=== PATIENT | female | born 1965 | race Caucasian/White ===

== ENCOUNTER 2017-08-11 14:16 | Inpatient (IN) | payer MEDICARE, MEDICAID ==
[2017-08-11] MEDS ORDERED: oxyCODONE 5 MG TAB PO PRN (17:29)
[2017-08-11] MEDS ORDERED: Ventolin HFA Inhaler 60 PUFF INHALER INH PRN (17:29)
[2017-08-11] MEDS ORDERED: Ondansetron ODT 4 MG TAB PO PRN (17:29)
[2017-08-11] MEDS: lamoTRIgine 25 MG TAB PO SCH (20:32)
[2017-08-11] MEDS: Gabapentin 400 MG CAP PO SCH (20:32)
[2017-08-11] MEDS: TROSPIUM 20 MG TABLET PO SCH (20:32)
[2017-08-11] MEDS: Senokot S 8.6-50 MG TAB PO SCH (20:33)
[2017-08-11] MEDS ORDERED: FLU VACC QS2017-18 36 mo. & older 0.5 ML SYRINGE IM ONE (21:00)
[2017-08-12] MEDS: NALOXEGOL OXALATE 12.5 MG PO SCH (08:39)
[2017-08-12] MEDS: Ferrous Sulfate 325 MG TAB PO SCH (08:41)
[2017-08-12] MEDS: lamoTRIgine 25 MG TAB PO SCH ×2 (08:41→20:28)
[2017-08-12] MEDS: Gabapentin 400 MG CAP PO SCH ×2 (08:41→20:28)
[2017-08-12] MEDS: Zinc Sulfate 220 MG CAP PO SCH (08:42)
[2017-08-12] MEDS: TROSPIUM 20 MG TABLET PO SCH ×2 (08:42→20:28)
[2017-08-12] MEDS: Multivitamin W/ Minerals 1 TAB PO SCH (08:42)
[2017-08-12] MEDS: Folic Acid 1 MG TAB PO SCH (08:43)
[2017-08-12] MEDS: Collagenase 250 UNITS/GM Ointment 30 GM TUBE TOP SCH (08:45)
[2017-08-12] MEDS: Senokot S 8.6-50 MG TAB PO SCH ×2 (08:46→20:28)
[2017-08-12] MEDS ORDERED: FLU VACC QS2017-18 36 mo. & older 0.5 ML SYRINGE IM ONE (09:00)
--- NOTE | 2017-08-13 00:06 | HP ---
DATE OF ADMISSION: 08/11/2017 PRIMARY CARE PHYSICIAN: Dr. Argueta in [place]. ADMITTING PHYSICIAN: Brittaney Winchester M.D. ATTENDING PHYSICIAN: Helena Hart MD REASON FOR ADMISSION: Admitted for a skilled rehabilitation to Dr Cordoba , secondary to deconditioning. DISCHARGE PLAN: Home with significant other. DISCHARGE GOAL: Independent to minimum assist with ADLs. ESTIMATED LENGTH OF STAY: Three to four weeks. HOSPITALIZATION: 07/10/17 to 08/11/17 at [facility].DIAGNOSES: Severe sepsis, Urinary tract infection, recurrent.Urethrocutaneous fistula, ileus, severe protein calorie malnutrition, small bowel obstruction partial, improved. Anemia, chronic. Bilateral ureteral stricture with obstruction, Cutaneous fistula and hip wound,Tachycardia sinus, baseline heart rate from 120s to 140s. , with unremarkable cardio eval;Severe deconditioning; Peripheral vascular disease, unspecified; muscular deconditioning; history of cervical cancer. PROCEDURES: 1. TPN 08/06/[address] Palacios and Dr[address] Ruma Vega. 2. On 07/13/2017, cystourethroscopy with bilateral stent exchange, bilateral renal aspiration and retrograde pyelography, ureteral dilatation by Dr. Lucio. 3. Retrograde pyelogram on 07/23/2017. 4. Lumbar puncture fluoroscopy on 07/18/2017. PHYSICIANS INVOLVED: 1. Hospitalist, [place] [facility] residents. 2. Dr. Ballard, Cardiology. 3. Dr. Hurst, Pulmonary. 4. Dr. Lucio, Urology. HISTORY OF PRESENT ILLNESS: The patient is a 52-year-old female with a past medical history of cervical and uterine cancer in 2006, status post radiation. Due to radiation complication, the patient reports to have left AKA. The patient was recently admitted at [facility] in [place] fro acute illness. She was transferred to [facility] for skilled rehab. The patient was referred and accepted by Dr Malik. Adalid in [facility] [place]. I am admitting the patient today for Dr Malki Chcbertram. The patient is a poor historian. Most of the information in the history was taken from the hospital records. There was no discharge summary available at this time and patient stayed at [facility] for a month. From what I gathered, the patient was admitted to [facility] for sepsis secondary to left above knee amputation stump infection associated with dehydration and electrolyte imbalance secondary to chronic volume depletion and poor oral intake. Patient reports history of chronic loss of appetite associated with significant weight loss. The patient was also found to have UTI on this admission. The patient's course was complicated with small bowel obstruction, AKA stump complication, urethrocutaneous fistula, severe protein calorie malnutrition and severe deconditioning. During her hospital stay, there was also reported persistent tachycardia. Her heart rate consistently runs in the 120s to 140s per record, thus Cardiology consult was obtained with no significant cardio findings as per records that I could gather. The patient was placed on TPN for feeding. during this hospitalization. Electrolytes were corrected. The patient was eventually has gotten off the TPN feeding and is now currently tolerating oral intake with regular diet. With regards to her left urethrocutaneous fistula per Dr. Lucio's note, it appears healed after one week of blunted trauma suction. She was dilated at that time for her cystoscopy by Dr. Lucio; however, longer term would debilitate the patient. The patient was eventually taken off of the Neville catheter and currently voiding prior to discharge. Patient's current wound on her AKA needs a wound vac. When seen today, the patient was resting comfortably in bed, significant other was at bedside at the time of examination. The patient reports she is generally weak and remains bedridden, hopeful that she could get back her baseline, so she can get back to her home environment. PAST MEDICAL HISTORY: 1. Ureter structures, status post stent placement versus change every year by Dr. Lucio, which has cause chronic kidney disease. 2. Hypertension. 3. Status post cervical and uterine cancer. 4. History of deep venous thrombosis. 5. Chronic back pain. 6. 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 7. Bipolar disorder. 8. Dyslipidemia. 9. Severe chronic complications from treatment of the vulvar cancer. 10. Vulvar cancer, status post resection and radiation, in remission. 11. Peripheral vascular disease with loss of left lower extremity and hip disarticulation. 12. Osteomyelitis of the pelvis, in remission. 13. Obstructed uropathy requiring bilateral nephrostomy tube placement with yearly replacement. 14. Ureteral strictures, now diagnosed with urethrocutaneous fistula. PAST SURGICAL HISTORY: Left [id number] amputation, colostomy and colostomy reversal, partial colectomy, stent placement in kidneys, cholecystectomy, left vein repair, and bladder removal. ALLERGIES: CIPRO. CURRENT MEDICATIONS: 1. Fentanyl 150 mg transdermal every 3 days. 2. Ventolin HFA inhaler 1 puff q.4 hours p.r.n. 3. VESIcare 5 mg p.o. q.a.m. 4. Protonix 40 mg p.o. q.a.m. 5. Oxycodone 7.4 mg q.4 hours p.r.n. 6. Zofran ODT 4 mg q.6 hours p.r.n. 7. Gabapentin 400 mg p.o. b.i.d. 8. Aspirin 81 mg p.o. daily. 9. Lamotrigine 150 mg p.o. b.i.d. 10. Folic acid 1 mg daily. 11. Ferrous sulfate 325 mg q.a.m. 12. Multivitamins 1 tablet daily. 13. Naloxegol oxalate 12 mg p.o. daily. 14. Santyl 250 units per gram ointment daily. 15. Senokot 1 tablet p.o. b.i.d. 16. Trospium 20 mg p.o. b.i.d. 17. Zinc sulfate 220 mg p.o. daily. FAMILY HISTORY: Noncontributory. SOCIAL HISTORY: Reports tobacco use, smokes half a pack a day for the last 35 years. Alcohol: Previous heavy alcohol consumption, but reports no alcohol consumption for years. Does report regular cannabis use, last use 2 weeks prior to recent hospitalization per report. REVIEW OF SYSTEMS: General: Reports general weakness, fatigue. No fever, no chills. Positive loss of appetite and weight loss. HEENT: No acute visual changes or hearing changes. No cold symptoms. Respiratory: Intermittent shortness of breath, no sputum production. No bloody sputum. No chronic cough. Gastrointestinal: Reports nausea without vomiting, indigestion, constipation. No loose bowel movements. No incontinence. No abdominal pain. Genitourinary: As per HPI. Currently, voiding, no dysuria, hematuria, no incontinence. Cardiovascular: Reports tachycardia, no palpitations, no paroxysmal nocturnal dyspnea, no active chest pain. No leg edema. Musculoskeletal: Reports chronic pain, no joint swelling, no redness, no stiffness, positive myalgia. Psychiatric: Denies depressive symptoms, anxiety , hallucinations, or insomnia. Neurologic: No focal numbness, focal weakness, syncope, tics, seizures or tremors. Skin: Reports postop wounds from recent procedures. PHYSICAL EXAMINATION: VITAL SIGNS: Temperature 99.5; pulse 120 initially, 113 on repeat; respirations 20, O2 sat 100% on room air; weight 75 pounds and 8 ounces; height 5 feet 6 inches; blood pressure 118/86. GENERAL: The patient is awake, alert, oriented x3, cachectic looking, generally weak female, comfortably resting in bed, not in acute distress. HEENT: Normocephalic, atraumatic. PERRLA, intact EOM. Anicteric sclerae. Oral mucosa is moist. No oral lesions. NECK: Supple. No LAD, no JVD, no bruit. CHEST: Normal excursion, clear to auscultation bilaterally. HEART: Tachycardic. Normal S1 and S2. No murmurs. ABDOMEN: Flat, soft, normoactive bowel sounds, nondistended, nontender. No rebound, no guarding. Negative CVA tenderness bilaterally. EXTREMITIES: Thin limbs, atrophied. Positive left AKA. Negative Homans' signs. Dorsalis pedis not appreciated on the right lower extremity. No edema, no cyanosis. SKIN: 3 unstageable sacral decubitus (1) 7.6 x 3.2 x 0.2 cm; (2) 1.1 x 0.8 x 0.1 cm , macerated, periwound with slough and necrotic tissue. Left AKA dehisced incision , 5.7 x 5.8 x 3.8 cm, visible bone, with tunneling between 11 to 2 o'clock, 4 cm depth; with 95% granulation and 5% slough. Post- procedure wound on the right neck and the left hip are covered by clean dressings.Multiple dry small scabbed wounds on the right toe,. Suspected DTI on the right great toe. PSYCHIATRIC: Calm, appropriate, pleasant and cooperative. LABORATORY DATA: Recent labs prior to transfer: Hemoglobin 9.8, hematocrit 30.4, WBC 5.2, platelets 309. Sodium 141, potassium 5.1, BUN 15, creatinine 0.66, glucose 96. ASSESSMENT AND PLAN: 1. Severe deconditioning. 2. General weakness secondary to complicated recent hospitalizations. 3. Sepsis secondary to left rhhal-cuw-ehps amputation stump treated, continue wound care. 4. Urethrocutaneous fistula complicated with urinary retention, requiring Neville catheter insertion status post removal of catheter, now voiding freely. 5. Peripheral vascular disease, unspecified chronic. 6. Protein calorie malnutrition, severe, status post TPN feeding, currently taking p.o. without problems. 7. History of small-bowel obstruction, resolved, currently having bowel movement, latest bowel movement this morning per the patient. 8. Anemia, chronic, status post 3 units packed RBC during this hospitalization. Stable hemoglobin and hematocrit. 9. History of cervical cancer with multiple vulvar cancer complications, in remission. 10. Unsteady gait. The patient is admitted to [facility] for skilled rehabilitation. We will continue current medications as modified per list. We will continue PT , OT evaluation and treat.Venous thromboembolism prophylaxis with sequential compression devices.To apply wound vac as recommended as soon as DME is available. Routine wound care wet to dry dressings per hospital direction, pending wound vac availability. Further recommendations depending on the hospital course. Dr. Helena Hart will be following the patient during her skilled rehabilitation course. CODE STATUS: The patient reports DNR in the presence of her significant other who concurs with the patient's wishes. DISPOSITION: Home once appropriate with significant other as the primary caregiver and will be back to her previous home health services per request. KATE
[2017-08-13] MEDS: NALOXEGOL OXALATE 12.5 MG PO SCH (07:18)
[2017-08-13] MEDS: lamoTRIgine 25 MG TAB PO SCH ×2 (08:50→20:16)
[2017-08-13] MEDS: Zinc Sulfate 220 MG CAP PO SCH (08:50)
[2017-08-13] MEDS: Senokot S 8.6-50 MG TAB PO SCH ×3 (08:50→20:17)
[2017-08-13] MEDS: TROSPIUM 20 MG TABLET PO SCH ×2 (08:50→20:16)
[2017-08-13] MEDS: Ferrous Sulfate 325 MG TAB PO SCH (08:50)
[2017-08-13] MEDS: Multivitamin W/ Minerals 1 TAB PO SCH (08:50)
[2017-08-13] MEDS: Folic Acid 1 MG TAB PO SCH (08:50)
[2017-08-13] MEDS: Gabapentin 400 MG CAP PO SCH ×2 (08:50→20:16)
[2017-08-13] MEDS: Collagenase 250 UNITS/GM Ointment 30 GM TUBE TOP SCH (08:52)
[2017-08-13] MEDS ORDERED: Lantiseptic Ointment 130 GM JAR TOP PRN (16:57)
[2017-08-14] MEDS ORDERED: fentaNYL 50 mcg/hour Patch TD SCH (09:00)
[2017-08-14] MEDS: Gabapentin 400 MG CAP PO SCH ×2 (09:23→20:19)
[2017-08-14] MEDS: Senokot S 8.6-50 MG TAB PO SCH ×2 (09:23→20:20)
[2017-08-14] MEDS: Multivitamin W/ Minerals 1 TAB PO SCH (09:23)
[2017-08-14] MEDS: Ferrous Sulfate 325 MG TAB PO SCH (09:26)
[2017-08-14] MEDS: Zinc Sulfate 220 MG CAP PO SCH (09:26)
[2017-08-14] MEDS: lamoTRIgine 25 MG TAB PO SCH ×2 (09:26→20:19)
[2017-08-14] MEDS: Folic Acid 1 MG TAB PO SCH (09:26)
[2017-08-14] MEDS: TROSPIUM 20 MG TABLET PO SCH ×2 (09:26→20:19)
[2017-08-14] MEDS: Clotrimazole 1% Cream 15 GM TUBE TOP SCH (09:29)
[2017-08-14] MEDS: Collagenase 250 UNITS/GM Ointment 30 GM TUBE TOP SCH (09:29)
[2017-08-14] MEDS: Acetaminophen 325 MG TAB PO PRN (21:28)
[2017-08-14] MEDS: Vancomycin HCl 25 MG/ML Oral PO SCH (21:29)
[2017-08-15] MEDS: Ferrous Sulfate 325 MG TAB PO SCH (09:35)
[2017-08-15] MEDS: Folic Acid 1 MG TAB PO SCH (09:36)
[2017-08-15] MEDS: Gabapentin 400 MG CAP PO SCH ×2 (09:36→20:30)
[2017-08-15] MEDS: Clotrimazole 1% Cream 15 GM TUBE TOP SCH (09:36)
[2017-08-15] MEDS: lamoTRIgine 25 MG TAB PO SCH ×2 (09:37→20:30)
[2017-08-15] MEDS: Senokot S 8.6-50 MG TAB PO SCH ×2 (09:37→20:34)
[2017-08-15] MEDS: Multivitamin W/ Minerals 1 TAB PO SCH (09:37)
[2017-08-15] MEDS: TROSPIUM 20 MG TABLET PO SCH ×2 (09:37→20:30)
[2017-08-15] MEDS: Vancomycin HCl 25 MG/ML Oral PO SCH ×4 (09:38→20:31)
[2017-08-15] MEDS: Zinc Sulfate 220 MG CAP PO SCH (09:38)
[2017-08-15] MEDS: Collagenase 250 UNITS/GM Ointment 30 GM TUBE TOP SCH (09:38)
[2017-08-15] MEDS: Acetaminophen 325 MG TAB PO PRN (20:31)
[2017-08-16] MEDS: Zinc Sulfate 220 MG CAP PO SCH (08:58)
[2017-08-16] MEDS: Senokot S 8.6-50 MG TAB PO SCH ×2 (08:58→21:30)
[2017-08-16] MEDS: Folic Acid 1 MG TAB PO SCH (08:58)
[2017-08-16] MEDS: TROSPIUM 20 MG TABLET PO SCH ×2 (08:58→21:29)
[2017-08-16] MEDS: Ferrous Sulfate 325 MG TAB PO SCH (08:58)
[2017-08-16] MEDS: Multivitamin W/ Minerals 1 TAB PO SCH (08:58)
[2017-08-16] MEDS: Gabapentin 400 MG CAP PO SCH ×2 (08:58→21:30)
[2017-08-16] MEDS: lamoTRIgine 25 MG TAB PO SCH ×2 (08:58→21:30)
[2017-08-16] MEDS: Collagenase 250 UNITS/GM Ointment 30 GM TUBE TOP SCH (08:59)
[2017-08-16] MEDS: Vancomycin HCl 25 MG/ML Oral PO SCH ×4 (08:59→21:35)
[2017-08-16] MEDS: Clotrimazole 1% Cream 15 GM TUBE TOP SCH (13:20)
[2017-08-17] MEDS: Ferrous Sulfate 325 MG TAB PO SCH (07:43)
[2017-08-17] MEDS: Clotrimazole 1% Cream 15 GM TUBE TOP SCH (08:22)
[2017-08-17] MEDS: fentaNYL 100 mcg/hour Patch TD SCH (08:24)
[2017-08-17] MEDS: Folic Acid 1 MG TAB PO SCH (08:25)
[2017-08-17] MEDS: lamoTRIgine 25 MG TAB PO SCH ×2 (08:25→20:25)
[2017-08-17] MEDS: Gabapentin 400 MG CAP PO SCH ×2 (08:25→20:33)
[2017-08-17] MEDS: fentaNYL 50 mcg/hour Patch TD SCH (08:25)
[2017-08-17] MEDS: Multivitamin W/ Minerals 1 TAB PO SCH (08:26)
[2017-08-17] MEDS: TROSPIUM 20 MG TABLET PO SCH ×2 (08:27→20:26)
[2017-08-17] MEDS: Senokot S 8.6-50 MG TAB PO SCH ×2 (08:27→20:26)
[2017-08-17] MEDS: Collagenase 250 UNITS/GM Ointment 30 GM TUBE TOP SCH (08:27)
[2017-08-17] MEDS: Vancomycin HCl 25 MG/ML Oral PO SCH ×4 (08:27→20:30)
[2017-08-17] MEDS: Zinc Sulfate 220 MG CAP PO SCH (08:28)
[2017-08-18] MEDS: Vancomycin HCl 25 MG/ML Oral PO SCH ×4 (09:23→20:18)
[2017-08-18] MEDS: Gabapentin 400 MG CAP PO SCH ×2 (09:23→20:18)
[2017-08-18] MEDS: Folic Acid 1 MG TAB PO SCH (09:23)
[2017-08-18] MEDS: Ferrous Sulfate 325 MG TAB PO SCH (09:24)
[2017-08-18] MEDS: Multivitamin W/ Minerals 1 TAB PO SCH (09:24)
[2017-08-18] MEDS: lamoTRIgine 25 MG TAB PO SCH ×2 (09:24→20:22)
[2017-08-18] MEDS: TROSPIUM 20 MG TABLET PO SCH ×2 (09:24→20:18)
[2017-08-18] MEDS: Zinc Sulfate 220 MG CAP PO SCH (09:24)
[2017-08-18] MEDS: Senokot S 8.6-50 MG TAB PO SCH ×2 (09:24→20:18)
[2017-08-18] MEDS: Clotrimazole 1% Cream 15 GM TUBE TOP SCH (09:25)
[2017-08-19] MEDS: lamoTRIgine 25 MG TAB PO SCH ×2 (08:53→20:31)
[2017-08-19] MEDS: Gabapentin 400 MG CAP PO SCH ×2 (08:54→20:31)
[2017-08-19] MEDS: Senokot S 8.6-50 MG TAB PO SCH ×2 (08:54→20:31)
[2017-08-19] MEDS: TROSPIUM 20 MG TABLET PO SCH ×2 (08:54→20:31)
[2017-08-19] MEDS: Ferrous Sulfate 325 MG TAB PO SCH (08:54)
[2017-08-19] MEDS: Multivitamin W/ Minerals 1 TAB PO SCH (08:54)
[2017-08-19] MEDS: Folic Acid 1 MG TAB PO SCH (08:54)
[2017-08-19] MEDS: Zinc Sulfate 220 MG CAP PO SCH (08:54)
[2017-08-19] MEDS: Vancomycin HCl 25 MG/ML Oral PO SCH ×4 (08:55→20:31)
[2017-08-19] MEDS: Clotrimazole 1% Cream 15 GM TUBE TOP SCH (08:55)
[2017-08-20] MEDS: Ferrous Sulfate 325 MG TAB PO SCH (08:53)
[2017-08-20] MEDS: Clotrimazole 1% Cream 15 GM TUBE TOP SCH (08:53)
[2017-08-20] MEDS: fentaNYL 100 mcg/hour Patch TD SCH (08:54)
[2017-08-20] MEDS: fentaNYL 50 mcg/hour Patch TD SCH (08:54)
[2017-08-20] MEDS: lamoTRIgine 25 MG TAB PO SCH ×2 (08:55→20:43)
[2017-08-20] MEDS: Multivitamin W/ Minerals 1 TAB PO SCH (08:55)
[2017-08-20] MEDS: Folic Acid 1 MG TAB PO SCH (08:55)
[2017-08-20] MEDS: Gabapentin 400 MG CAP PO SCH ×2 (08:55→20:43)
[2017-08-20] MEDS: TROSPIUM 20 MG TABLET PO SCH ×2 (08:56→20:43)
[2017-08-20] MEDS: Zinc Sulfate 220 MG CAP PO SCH (08:56)
[2017-08-20] MEDS: Senokot S 8.6-50 MG TAB PO SCH ×2 (08:56→20:42)
[2017-08-20] MEDS: Vancomycin HCl 25 MG/ML Oral PO SCH ×4 (08:56→20:42)
[2017-08-20 18:03] LABS: HBSAg Index 0.22 S/CO (0-0.99); HIV (1/2) Antibody/Antigen Non-Reactive (NonReactive); HIV 1/2 INDEX 0.08 S/CO (<1.00); Hep B Surf Ag Non-Reactive S/CO (NonReactive); Hep C IgG Ab Non-Reactive (NonReactive); Hep C Index 0.26 S/CO (0-0.79)
[2017-08-21] MEDS: Ferrous Sulfate 325 MG TAB PO SCH (09:27)
[2017-08-21] MEDS: Folic Acid 1 MG TAB PO SCH (09:28)
[2017-08-21] MEDS: Gabapentin 400 MG CAP PO SCH ×2 (09:28→20:06)
[2017-08-21] MEDS: lamoTRIgine 25 MG TAB PO SCH ×2 (09:28→20:06)
[2017-08-21] MEDS: Multivitamin W/ Minerals 1 TAB PO SCH (09:29)
[2017-08-21] MEDS: Vancomycin HCl 25 MG/ML Oral PO SCH ×4 (09:29→20:05)
[2017-08-21] MEDS: Zinc Sulfate 220 MG CAP PO SCH (09:29)
[2017-08-21] MEDS: Senokot S 8.6-50 MG TAB PO SCH ×2 (09:29→20:06)
[2017-08-21] MEDS: TROSPIUM 20 MG TABLET PO SCH ×2 (09:29→20:06)
[2017-08-21] MEDS: Acetaminophen 325 MG TAB PO PRN (20:06)
[2017-08-22] MEDS: Folic Acid 1 MG TAB PO SCH (08:40)
[2017-08-22] MEDS: TROSPIUM 20 MG TABLET PO SCH ×2 (08:40→20:24)
[2017-08-22] MEDS: Ferrous Sulfate 325 MG TAB PO SCH (08:40)
[2017-08-22] MEDS: Vancomycin HCl 25 MG/ML Oral PO SCH ×4 (08:40→20:24)
[2017-08-22] MEDS: lamoTRIgine 25 MG TAB PO SCH ×2 (08:40→20:23)
[2017-08-22] MEDS: Senokot S 8.6-50 MG TAB PO SCH ×2 (08:40→20:24)
[2017-08-22] MEDS: Zinc Sulfate 220 MG CAP PO SCH (08:40)
[2017-08-22] MEDS: Multivitamin W/ Minerals 1 TAB PO SCH (08:40)
[2017-08-22] MEDS: Gabapentin 400 MG CAP PO SCH ×2 (08:40→20:23)
[2017-08-23] MEDS: fentaNYL 100 mcg/hour Patch TD SCH (08:53)
[2017-08-23] MEDS: fentaNYL 50 mcg/hour Patch TD SCH (08:54)
[2017-08-23] MEDS: lamoTRIgine 25 MG TAB PO SCH ×2 (08:55→20:43)
[2017-08-23] MEDS: Folic Acid 1 MG TAB PO SCH (08:55)
[2017-08-23] MEDS: Gabapentin 400 MG CAP PO SCH ×2 (08:55→20:43)
[2017-08-23] MEDS: Multivitamin W/ Minerals 1 TAB PO SCH (08:55)
[2017-08-23] MEDS: Zinc Sulfate 220 MG CAP PO SCH (08:55)
[2017-08-23] MEDS: TROSPIUM 20 MG TABLET PO SCH ×2 (08:56→20:43)
[2017-08-23] MEDS: Ferrous Sulfate 325 MG TAB PO SCH (08:56)
[2017-08-23] MEDS: Vancomycin HCl 25 MG/ML Oral PO SCH ×4 (08:56→20:44)
[2017-08-23] MEDS: Senokot S 8.6-50 MG TAB PO SCH ×2 (08:56→20:43)
[2017-08-24] MEDS: Vancomycin HCl 25 MG/ML Oral PO SCH ×4 (08:25→21:34)
[2017-08-24] MEDS: Senokot S 8.6-50 MG TAB PO SCH ×2 (08:26→21:32)
[2017-08-24] MEDS: TROSPIUM 20 MG TABLET PO SCH ×2 (08:26→21:32)
[2017-08-24] MEDS: Zinc Sulfate 220 MG CAP PO SCH (08:26)
[2017-08-24] MEDS: Gabapentin 400 MG CAP PO SCH ×2 (08:26→21:31)
[2017-08-24] MEDS: lamoTRIgine 25 MG TAB PO SCH ×2 (08:27→21:32)
[2017-08-24] MEDS: Folic Acid 1 MG TAB PO SCH (08:27)
[2017-08-24] MEDS: Multivitamin W/ Minerals 1 TAB PO SCH (08:27)
[2017-08-24] MEDS: Ferrous Sulfate 325 MG TAB PO SCH (08:27)
[2017-08-25] MEDS: TROSPIUM 20 MG TABLET PO SCH ×2 (09:44→20:44)
[2017-08-25] MEDS: Gabapentin 400 MG CAP PO SCH ×2 (09:44→20:44)
[2017-08-25] MEDS: Multivitamin W/ Minerals 1 TAB PO SCH (09:44)
[2017-08-25] MEDS: Zinc Sulfate 220 MG CAP PO SCH (09:44)
[2017-08-25] MEDS: Senokot S 8.6-50 MG TAB PO SCH ×2 (09:45→20:44)
[2017-08-25] MEDS: lamoTRIgine 25 MG TAB PO SCH ×2 (09:45→20:45)
[2017-08-25] MEDS: Vancomycin HCl 25 MG/ML Oral PO SCH ×2 (09:45→12:41)
[2017-08-25] MEDS: Folic Acid 1 MG TAB PO SCH (09:45)
[2017-08-25] MEDS: Ferrous Sulfate 325 MG TAB PO SCH (09:45)
[2017-08-25] MEDS ORDERED: Vancomycin HCl 25 MG/ML Oral ONE (13:58)
[2017-08-25] MEDS: Acetaminophen 325 MG TAB PO PRN (20:45)
[2017-08-26] MEDS: Multivitamin W/ Minerals 1 TAB PO SCH (08:21)
[2017-08-26] MEDS: Folic Acid 1 MG TAB PO SCH (08:21)
[2017-08-26] MEDS: Zinc Sulfate 220 MG CAP PO SCH (08:21)
[2017-08-26] MEDS: lamoTRIgine 25 MG TAB PO SCH ×2 (08:21→20:42)
[2017-08-26] MEDS: fentaNYL 50 mcg/hour Patch TD SCH (08:22)
[2017-08-26] MEDS: TROSPIUM 20 MG TABLET PO SCH ×2 (08:22→20:41)
[2017-08-26] MEDS: Senokot S 8.6-50 MG TAB PO SCH ×2 (08:22→20:43)
[2017-08-26] MEDS: Ferrous Sulfate 325 MG TAB PO SCH (08:22)
[2017-08-26] MEDS: Gabapentin 400 MG CAP PO SCH ×2 (08:22→20:41)
[2017-08-26] MEDS: fentaNYL 100 mcg/hour Patch TD SCH (08:23)
[2017-08-26] MEDS ORDERED: Sodium Chloride Irrig Solution 250 ML BOT ONE (13:02)
[2017-08-26] MEDS: Acetaminophen 325 MG TAB PO PRN (20:41)
[2017-08-27] MEDS: Multivitamin W/ Minerals 1 TAB PO SCH (08:20)
[2017-08-27] MEDS: Gabapentin 400 MG CAP PO SCH ×2 (08:20→20:30)
[2017-08-27] MEDS: Senokot S 8.6-50 MG TAB PO SCH ×2 (08:20→20:31)
[2017-08-27] MEDS: Zinc Sulfate 220 MG CAP PO SCH (08:21)
[2017-08-27] MEDS: lamoTRIgine 25 MG TAB PO SCH ×2 (08:21→20:30)
[2017-08-27] MEDS: Ferrous Sulfate 325 MG TAB PO SCH (08:21)
[2017-08-27] MEDS: Folic Acid 1 MG TAB PO SCH (08:21)
[2017-08-27] MEDS: TROSPIUM 20 MG TABLET PO SCH ×2 (08:22→20:30)
[2017-08-27] MEDS: Acetaminophen 325 MG TAB PO PRN (20:30)
[2017-08-28] MEDS: Zinc Sulfate 220 MG CAP PO SCH (08:39)
[2017-08-28] MEDS: lamoTRIgine 25 MG TAB PO SCH ×2 (08:40→20:25)
[2017-08-28] MEDS: Senokot S 8.6-50 MG TAB PO SCH ×2 (08:40→20:25)
[2017-08-28] MEDS: Folic Acid 1 MG TAB PO SCH (08:40)
[2017-08-28] MEDS: Gabapentin 400 MG CAP PO SCH ×2 (08:41→20:25)
[2017-08-28] MEDS: Ferrous Sulfate 325 MG TAB PO SCH (08:41)
[2017-08-28] MEDS: TROSPIUM 20 MG TABLET PO SCH ×2 (08:41→20:25)
[2017-08-28] MEDS: Multivitamin W/ Minerals 1 TAB PO SCH (08:41)
[2017-08-29] MEDS: Senokot S 8.6-50 MG TAB PO SCH ×2 (08:43→20:41)
[2017-08-29] MEDS: Zinc Sulfate 220 MG CAP PO SCH (08:44)
[2017-08-29] MEDS: Gabapentin 400 MG CAP PO SCH ×2 (08:44→20:40)
[2017-08-29] MEDS: Folic Acid 1 MG TAB PO SCH (08:44)
[2017-08-29] MEDS: TROSPIUM 20 MG TABLET PO SCH ×2 (08:44→20:41)
[2017-08-29] MEDS: Multivitamin W/ Minerals 1 TAB PO SCH (08:44)
[2017-08-29] MEDS: Ferrous Sulfate 325 MG TAB PO SCH (08:44)
[2017-08-29] MEDS: lamoTRIgine 25 MG TAB PO SCH ×2 (08:44→20:40)
[2017-08-29] MEDS: fentaNYL 100 mcg/hour Patch TD SCH (08:45)
[2017-08-29] MEDS: fentaNYL 50 mcg/hour Patch TD SCH (08:45)
[2017-08-30] MEDS: lamoTRIgine 25 MG TAB PO SCH ×2 (09:01→21:21)
[2017-08-30] MEDS: Senokot S 8.6-50 MG TAB PO SCH ×2 (09:02→23:23)
[2017-08-30] MEDS: Ferrous Sulfate 325 MG TAB PO SCH (09:02)
[2017-08-30] MEDS: Folic Acid 1 MG TAB PO SCH (09:02)
[2017-08-30] MEDS: TROSPIUM 20 MG TABLET PO SCH ×2 (09:02→21:21)
[2017-08-30] MEDS: Gabapentin 400 MG CAP PO SCH ×2 (09:02→21:21)
[2017-08-30] MEDS: Zinc Sulfate 220 MG CAP PO SCH (09:02)
[2017-08-30] MEDS: Multivitamin W/ Minerals 1 TAB PO SCH (09:02)
[2017-08-31] MEDS: Zinc Sulfate 220 MG CAP PO SCH (08:33)
[2017-08-31] MEDS: Ferrous Sulfate 325 MG TAB PO SCH (08:34)
[2017-08-31] MEDS: Senokot S 8.6-50 MG TAB PO SCH ×2 (08:34→21:18)
[2017-08-31] MEDS: Gabapentin 400 MG CAP PO SCH ×2 (08:34→21:18)
[2017-08-31] MEDS: TROSPIUM 20 MG TABLET PO SCH ×2 (08:34→21:19)
[2017-08-31] MEDS: Multivitamin W/ Minerals 1 TAB PO SCH (08:34)
[2017-08-31] MEDS: Folic Acid 1 MG TAB PO SCH (08:34)
[2017-08-31] MEDS: lamoTRIgine 25 MG TAB PO SCH ×2 (08:39→21:18)
[2017-08-31 18:42] LABS: Bilirubin Negative (Negative); Blood, Urine Moderate (Negative); Clarity Slightly Cloudy (Clear); Glucose, Urine (Dipstick) Negative (Negative); Leukocyte Large (Negative); Nitrite Negative (Negative); Protein, Urine (Dipstick) Trace mg/dL (Neg-Trace); Urobilinogen 0.2 mg/dL (0.2-1.0); pH, Urine 5.5 (5.0-9.0)
[2017-08-31 18:49] LABS: RBC/HPF 21-50 HPF (0-3); Specific Gravity, Urine 1.008 (1.002-1.036)
[2017-08-31 18:50] LABS: Bacteria/HPF 4+ HPF (None Seen)
[2017-09-01] MEDS: fentaNYL 100 mcg/hour Patch TD SCH (08:43)
[2017-09-01] MEDS: fentaNYL 50 mcg/hour Patch TD SCH (08:44)
[2017-09-01] MEDS: Multivitamin W/ Minerals 1 TAB PO SCH (08:45)
[2017-09-01] MEDS: TROSPIUM 20 MG TABLET PO SCH ×2 (08:46→21:04)
[2017-09-01] MEDS: Folic Acid 1 MG TAB PO SCH (08:46)
[2017-09-01] MEDS: Senokot S 8.6-50 MG TAB PO SCH ×2 (08:46→21:03)
[2017-09-01] MEDS: lamoTRIgine 25 MG TAB PO SCH ×2 (08:46→21:03)
[2017-09-01] MEDS: Gabapentin 400 MG CAP PO SCH ×2 (08:46→21:05)
[2017-09-01] MEDS: Sulfameth/Trimethoprim DS 800-160mg TAB PO SCH ×2 (08:46→21:04)
[2017-09-01] MEDS: Zinc Sulfate 220 MG CAP PO SCH (08:47)
[2017-09-01] MEDS: Ferrous Sulfate 325 MG TAB PO SCH (08:47)
[2017-09-02] MEDS: Zinc Sulfate 220 MG CAP PO SCH (08:38)
[2017-09-02] MEDS: Folic Acid 1 MG TAB PO SCH (08:39)
[2017-09-02] MEDS: Multivitamin W/ Minerals 1 TAB PO SCH (08:39)
[2017-09-02] MEDS: TROSPIUM 20 MG TABLET PO SCH ×2 (08:39→20:09)
[2017-09-02] MEDS: Senokot S 8.6-50 MG TAB PO SCH ×2 (08:39→20:08)
[2017-09-02] MEDS: lamoTRIgine 25 MG TAB PO SCH ×2 (08:39→20:08)
[2017-09-02] MEDS: Gabapentin 400 MG CAP PO SCH ×2 (08:39→20:08)
[2017-09-02] MEDS: Sulfameth/Trimethoprim DS 800-160mg TAB PO SCH ×2 (08:39→20:09)
[2017-09-02] MEDS: Ferrous Sulfate 325 MG TAB PO SCH (08:40)
[2017-09-03] MEDS: Senokot S 8.6-50 MG TAB PO SCH ×2 (08:45→20:12)
[2017-09-03] MEDS: Sulfameth/Trimethoprim DS 800-160mg TAB PO SCH (08:45)
[2017-09-03] MEDS: Gabapentin 400 MG CAP PO SCH ×2 (08:45→20:11)
[2017-09-03] MEDS: Folic Acid 1 MG TAB PO SCH (08:45)
[2017-09-03] MEDS: TROSPIUM 20 MG TABLET PO SCH ×2 (08:45→20:11)
[2017-09-03] MEDS: Zinc Sulfate 220 MG CAP PO SCH (08:45)
[2017-09-03] MEDS: Ferrous Sulfate 325 MG TAB PO SCH (08:45)
[2017-09-03] MEDS: lamoTRIgine 25 MG TAB PO SCH ×2 (08:46→20:09)
[2017-09-03] MEDS: Multivitamin W/ Minerals 1 TAB PO SCH (08:46)
[2017-09-03] MEDS: Cefdinir 300 MG CAP PO SCH (20:12)
[2017-09-04] MEDS: fentaNYL 50 mcg/hour Patch TD SCH (08:52)
[2017-09-04] MEDS: Ferrous Sulfate 325 MG TAB PO SCH (08:53)
[2017-09-04] MEDS: Cefdinir 300 MG CAP PO SCH ×2 (08:53→20:30)
[2017-09-04] MEDS: TROSPIUM 20 MG TABLET PO SCH ×2 (08:53→20:30)
[2017-09-04] MEDS: Multivitamin W/ Minerals 1 TAB PO SCH (08:53)
[2017-09-04] MEDS: fentaNYL 100 mcg/hour Patch TD SCH (08:53)
[2017-09-04] MEDS: Senokot S 8.6-50 MG TAB PO SCH ×2 (08:54→20:29)
[2017-09-04] MEDS: Gabapentin 400 MG CAP PO SCH ×2 (08:54→20:29)
[2017-09-04] MEDS: Folic Acid 1 MG TAB PO SCH (08:54)
[2017-09-04] MEDS: lamoTRIgine 25 MG TAB PO SCH ×2 (08:54→20:30)
[2017-09-04] MEDS: Zinc Sulfate 220 MG CAP PO SCH (08:55)
[2017-09-05] MEDS: Multivitamin W/ Minerals 1 TAB PO SCH (08:06)
[2017-09-05] MEDS: Ferrous Sulfate 325 MG TAB PO SCH (08:06)
[2017-09-05] MEDS: Gabapentin 400 MG CAP PO SCH ×2 (08:06→21:26)
[2017-09-05] MEDS: Senokot S 8.6-50 MG TAB PO SCH ×2 (08:06→21:26)
[2017-09-05] MEDS: Cefdinir 300 MG CAP PO SCH ×2 (08:06→21:26)
[2017-09-05] MEDS: Folic Acid 1 MG TAB PO SCH (08:06)
[2017-09-05] MEDS: Zinc Sulfate 220 MG CAP PO SCH (08:07)
[2017-09-05] MEDS: lamoTRIgine 25 MG TAB PO SCH ×2 (08:07→21:26)
[2017-09-05] MEDS: TROSPIUM 20 MG TABLET PO SCH ×2 (08:07→21:26)
[2017-09-06] MEDS: lamoTRIgine 25 MG TAB PO SCH ×2 (08:36→21:07)
[2017-09-06] MEDS: Senokot S 8.6-50 MG TAB PO SCH ×2 (08:37→21:07)
[2017-09-06] MEDS: Multivitamin W/ Minerals 1 TAB PO SCH (08:37)
[2017-09-06] MEDS: Gabapentin 400 MG CAP PO SCH ×2 (08:37→21:07)
[2017-09-06] MEDS: Zinc Sulfate 220 MG CAP PO SCH (08:37)
[2017-09-06] MEDS: Ferrous Sulfate 325 MG TAB PO SCH (08:37)
[2017-09-06] MEDS: TROSPIUM 20 MG TABLET PO SCH ×2 (08:37→21:08)
[2017-09-06] MEDS: Cefdinir 300 MG CAP PO SCH ×2 (08:37→21:07)
[2017-09-06] MEDS: Folic Acid 1 MG TAB PO SCH (08:37)
[2017-09-07] MEDS: Multivitamin W/ Minerals 1 TAB PO SCH (07:27)
[2017-09-07] MEDS: lamoTRIgine 25 MG TAB PO SCH ×2 (07:27→20:30)
[2017-09-07] MEDS: Ferrous Sulfate 325 MG TAB PO SCH (07:27)
[2017-09-07] MEDS: Cefdinir 300 MG CAP PO SCH ×2 (07:28→20:30)
[2017-09-07] MEDS: Gabapentin 400 MG CAP PO SCH ×2 (07:28→20:30)
[2017-09-07] MEDS: TROSPIUM 20 MG TABLET PO SCH ×2 (07:28→20:31)
[2017-09-07] MEDS: Folic Acid 1 MG TAB PO SCH (07:28)
[2017-09-07] MEDS: Zinc Sulfate 220 MG CAP PO SCH (07:28)
[2017-09-07] MEDS: Senokot S 8.6-50 MG TAB PO SCH ×2 (07:28→20:31)
[2017-09-07] MEDS: fentaNYL 50 mcg/hour Patch TD SCH (07:29)
[2017-09-07] MEDS: fentaNYL 100 mcg/hour Patch TD SCH (07:29)
[2017-09-08] MEDS: Gabapentin 400 MG CAP PO SCH ×2 (09:32→20:50)
[2017-09-08] MEDS: Multivitamin W/ Minerals 1 TAB PO SCH (09:33)
[2017-09-08] MEDS: lamoTRIgine 25 MG TAB PO SCH ×2 (09:33→20:50)
[2017-09-08] MEDS: Zinc Sulfate 220 MG CAP PO SCH (09:33)
[2017-09-08] MEDS: TROSPIUM 20 MG TABLET PO SCH ×2 (09:34→20:51)
[2017-09-08] MEDS: Folic Acid 1 MG TAB PO SCH (09:34)
[2017-09-08] MEDS: Ferrous Sulfate 325 MG TAB PO SCH (09:34)
[2017-09-08] MEDS: Senokot S 8.6-50 MG TAB PO SCH ×2 (09:34→20:51)
[2017-09-08] MEDS: Cefdinir 300 MG CAP PO SCH ×2 (09:34→20:50)
[2017-09-08] MEDS ORDERED: Sodium Chloride Irrig Solution 250 ML BOT ONE (13:35)
[2017-09-09] MEDS: Ferrous Sulfate 325 MG TAB PO SCH (07:40)
[2017-09-09] MEDS: lamoTRIgine 25 MG TAB PO SCH ×2 (08:52→20:12)
[2017-09-09] MEDS: Zinc Sulfate 220 MG CAP PO SCH (08:52)
[2017-09-09] MEDS: Cefdinir 300 MG CAP PO SCH ×2 (08:52→20:12)
[2017-09-09] MEDS: TROSPIUM 20 MG TABLET PO SCH ×2 (08:52→20:12)
[2017-09-09] MEDS: Folic Acid 1 MG TAB PO SCH (08:53)
[2017-09-09] MEDS: Multivitamin W/ Minerals 1 TAB PO SCH (08:53)
[2017-09-09] MEDS: Senokot S 8.6-50 MG TAB PO SCH ×2 (08:53→20:12)
[2017-09-09] MEDS: Gabapentin 400 MG CAP PO SCH ×2 (08:53→20:12)
[2017-09-10] MEDS: lamoTRIgine 25 MG TAB PO SCH ×2 (08:53→20:26)
[2017-09-10] MEDS: TROSPIUM 20 MG TABLET PO SCH ×2 (08:53→20:25)
[2017-09-10] MEDS: Zinc Sulfate 220 MG CAP PO SCH (08:53)
[2017-09-10] MEDS: Ferrous Sulfate 325 MG TAB PO SCH (08:54)
[2017-09-10] MEDS: Folic Acid 1 MG TAB PO SCH (08:54)
[2017-09-10] MEDS: Senokot S 8.6-50 MG TAB PO SCH ×2 (08:55→20:25)
[2017-09-10] MEDS: Gabapentin 400 MG CAP PO SCH ×2 (08:55→20:25)
[2017-09-10] MEDS: Multivitamin W/ Minerals 1 TAB PO SCH (08:55)
[2017-09-10] MEDS: fentaNYL 50 mcg/hour Patch TD SCH (08:56)
[2017-09-10] MEDS: fentaNYL 100 mcg/hour Patch TD SCH (08:56)
[2017-09-11 03:52] VITALS: BMI 13.9
[2017-09-11] MEDS: Gabapentin 400 MG CAP PO SCH ×2 (08:58→20:26)
[2017-09-11] MEDS: TROSPIUM 20 MG TABLET PO SCH ×2 (08:58→20:26)
[2017-09-11] MEDS: Zinc Sulfate 220 MG CAP PO SCH (08:58)
[2017-09-11] MEDS: Folic Acid 1 MG TAB PO SCH (08:59)
[2017-09-11] MEDS: Multivitamin W/ Minerals 1 TAB PO SCH (08:59)
[2017-09-11] MEDS: Senokot S 8.6-50 MG TAB PO SCH ×2 (08:59→20:26)
[2017-09-11] MEDS: lamoTRIgine 25 MG TAB PO SCH ×2 (08:59→20:26)
[2017-09-11] MEDS: Ferrous Sulfate 325 MG TAB PO SCH (08:59)
[2017-09-12] MEDS: Folic Acid 1 MG TAB PO SCH (07:51)
[2017-09-12] MEDS: Senokot S 8.6-50 MG TAB PO SCH ×2 (07:51→21:11)
[2017-09-12] MEDS: Gabapentin 400 MG CAP PO SCH ×2 (07:51→21:10)
[2017-09-12] MEDS: Multivitamin W/ Minerals 1 TAB PO SCH (07:51)
[2017-09-12] MEDS: Zinc Sulfate 220 MG CAP PO SCH (07:51)
[2017-09-12] MEDS: lamoTRIgine 25 MG TAB PO SCH ×2 (07:52→21:11)
[2017-09-12] MEDS: TROSPIUM 20 MG TABLET PO SCH ×2 (07:52→21:12)
[2017-09-12] MEDS: Ferrous Sulfate 325 MG TAB PO SCH (07:52)
[2017-09-13] MEDS: Gabapentin 400 MG CAP PO SCH ×2 (08:33→20:53)
[2017-09-13] MEDS: Zinc Sulfate 220 MG CAP PO SCH (08:34)
[2017-09-13] MEDS: TROSPIUM 20 MG TABLET PO SCH ×2 (08:34→20:53)
[2017-09-13] MEDS: lamoTRIgine 25 MG TAB PO SCH ×2 (08:34→20:52)
[2017-09-13] MEDS: Senokot S 8.6-50 MG TAB PO SCH ×2 (08:34→20:53)
[2017-09-13] MEDS: fentaNYL 50 mcg/hour Patch TD SCH (08:35)
[2017-09-13] MEDS: Multivitamin W/ Minerals 1 TAB PO SCH (08:35)
[2017-09-13] MEDS: Folic Acid 1 MG TAB PO SCH (08:35)
[2017-09-13] MEDS: Ferrous Sulfate 325 MG TAB PO SCH (08:35)
[2017-09-13] MEDS: fentaNYL 100 mcg/hour Patch TD SCH (08:36)
[2017-09-14 07:33] VITALS: BP 111/61; TEMP 98.5
[2017-09-14] MEDS: Ferrous Sulfate 325 MG TAB PO SCH (08:06)
[2017-09-14] MEDS: Gabapentin 400 MG CAP PO SCH (08:07)
[2017-09-14] MEDS: lamoTRIgine 25 MG TAB PO SCH (08:07)
[2017-09-14] MEDS: Folic Acid 1 MG TAB PO SCH (08:07)
[2017-09-14] MEDS: Zinc Sulfate 220 MG CAP PO SCH (08:08)
[2017-09-14] MEDS: Multivitamin W/ Minerals 1 TAB PO SCH (08:08)
[2017-09-14] MEDS: TROSPIUM 20 MG TABLET PO SCH (08:08)
[2017-09-14] MEDS: Senokot S 8.6-50 MG TAB PO SCH (08:08)
--- NOTE | 2017-09-15 07:10 | DIS ---
DATE OF ADMISSION: 08/11/2017 DATE OF DISCHARGE: 09/14/2017 DISCHARGING PHYSICIAN: Helena Hart M.D. PRIMARY CARE PHYSICIAN: Dr. Argueta in [place]. DISCHARGE DIAGNOSES: 1. Left above knee amputation stump wound infection, almost resolved; 2. Unstageable sacral ulcer, improving; 3. Urinary tract infection, resolved; 4. Physical debility, improving; 5. Protein calorie malnutrition, much improved with a 15 pound weight gain since admission. 6. C. diff reoccurrence, resolved. SECONDARY COMORBIDITIES: Peripheral vascular disease, history of small-bowel obstruction x2 during recent hospitalization in [place], history of cervical cancer with multiple vulvar cancer complications in remission, chronic anemia, urethrocutaneous fistula complicated with urinary retention requiring Neville in recent admission. DISCHARGE MEDICATIONS: Fentanyl 150 transdermal every 3 days, Ventolin inhaler q.4 hours p.r.n., VESIcare 5 mg daily, Protonix 40 daily, gabapentin 400 b.i.d. , aspirin 81 daily, lamotrigine 150 b.i.d., ferrous sulfate 325 q.a.m., naloxegol oxalate 12 mg p.o. daily, zinc oxide 220 mg p.o. daily, Senokot 1 tab b.i.d., multivitamins 1 tab daily, folic acid 1 mg daily. FOLLOWUP: Follow up with primary care physician within 1 week. ACTIVITIES: Ad arnav with walker or wheelchair at all times, physical therapy with [facility], wound care with [facility], medication compliance reinforced. DIET: Healthy regular diet. CODE STATUS: FULL CODE. HOSPITAL COURSE: Ms. Clark is a very pleasant 52-year-old female who was admitted to [facility] in [place] due to sepsis to left [facility], 07/10/2017. The patient had a very complicated and long stay in the hospital due to secondary comorbidities that complicated admission. The patient due to a sepsis was treated with IV antibiotics, improved. She had complicated small bowel obstructions. She had urinary retention requiring Neville catheter. She had volume depletion. The patient was very malnourished and wound healing was slow due to multiple complications. She had a urethrocutaneous fistula that eventually closed due to all these, patient was severely deconditioned and she was discharged to us in [facility] for physical therapy on 08/11/2017. The patient was admitted here for PT and progressively improved. During hospitalization, the patient was positive for C. diff reoccurrence. She was treated with vancomycin orally for 10 days and diarrhea stopped. Repeat C. diff was unable to be performed due to solid stools, but patient was placed on contact isolation throughout hospitalization. The patient progressively improved with her strength. When she was admitted, her weight was 75 pounds, prior to discharge, her weight was 88 pounds. The patient's left AKA stump infection was slowly progressing, thus requiring a wound VAC and this helped significantly, by the day of discharge, the wound was just very minimally superficial. The patient also had a sacrococcygeal unstageable ulcer, which progressively improved during the hospitalization. The patient overall improved and was deemed appropriate to be discharged home with her partner with [facility] for wound care treatments, and continuation of physical therapy. The patient was discharged home in a stable condition with her significant other and encouraged to follow up with her primary care physician within 5-7 days. KATE
== END 2017-09-14 14:30 | disposition home health service (06) | DRG 947 ==
LOC: MADMS 14:16
PROVIDERS: ADMIT Family Medicine; ATTEND Family Medicine
DX: R53.1 Weakness (principal); A41.9 Sepsis, unspecified organism; E43 Unspecified severe protein-calorie malnutrition; L89.150 Pressure ulcer of sacral region, unstageable; A04.71 Enterocolitis due to Clostridium difficile, recurrent; Z89.612 Acquired absence of left leg above knee; N39.0 Urinary tract infection, site not specified; N82.1 Other female urinary-genital tract fistulae; Z68.1 Body mass index [BMI] 19.9 or less, adult; D63.8 Anemia in other chronic diseases classified elsewhere; N35.8 Other urethral stricture; Z85.41 Personal history of malignant neoplasm of cervix uteri; Z92.3 Personal history of irradiation; I10 Essential (primary) hypertension; Z86.718 Personal history of other venous thrombosis and embolism; G89.29 Other chronic pain; M54.9 Dorsalgia, unspecified; G62.0 Drug-induced polyneuropathy; T50.8X5D Adverse effect of diagnostic agents, subsequent encounter; F31.9 Bipolar disorder, unspecified; E78.5 Hyperlipidemia, unspecified; N13.9 Obstructive and reflux uropathy, unspecified; Z88.8 Allergy status to other drugs, medicaments and biological substances; Z79.82 Long term (current) use of aspirin; Z79.51 Long term (current) use of inhaled steroids; F17.210 Nicotine dependence, cigarettes, uncomplicated; F10.21 Alcohol dependence, in remission; F12.10 Cannabis abuse, uncomplicated; T81.4XXD Infection following a procedure, subsequent encounter; R33.9 Retention of urine, unspecified; R26.81 Unsteadiness on feet; Z66 Do not resuscitate
CPT/HCPCS: 36415; 81001; 86803; 87077; 87086; 87186; 87324; 87340; 87389; 87449; 97602

== ENCOUNTER 2020-01-12 23:02 | Outpatient (CLI) | payer MEDICARE, OTHER ==
[2020-01-13 06:59] LABS: ALT (SGPT) Less than 7 U/L (8-55); AST (SGOT) 11 U/L (5-34); Albumin 2.7 g/dL (3.5-5.0); Alkaline Phosphatase 79 U/L (40-110); Anion Gap 21 mmol/L (10-20); BUN (Urea Nitrogen) 28 mg/dL (9.8-20.1); Bilirubin, Total Less than 0.2 mg/dL (0.2-1.2); CRP (Inflammatory) 6.52 mg/dL (= or < 0.5); Calc. Creatinine Clearance 0 mL/min (70-130); Calcium 8.3 mg/dL (7.8-10.44); Carbon Dioxide 17 mmol/L (22-29); Chloride 110 mmol/L (98-107); Estimated GFR-MDRD 79; Globulin 4.5 g/dL (2.4-3.5); Potassium 4.6 mmol/L (3.5-5.1); Protein, Total 7.2 g/dL (6.0-8.3); Sodium 143 mmol/L (136-145)
[2020-01-13 07:03] LABS: #Basophils 0.1 thou/uL (0.0-0.2); #Eosinphils 0.2 thou/uL (0.0-0.7); #Lymphocytes 0.7 thou/uL (1.20-3.40); #Monocytes 0.6 thou/uL (0.11-0.59); #Neutrophils 9.4 thou/uL (1.40-6.50); %Basophils 0.6 % (0.0-1.0); %Eosinophils 1.6 % (0.0-10.0); %Lymphocytes 6.3 % (21.0-51.0); %Monocytes 5.8 % (0.0-10.0); %Neutrophils 85.8 % (42.0-75.0); Hemoglobin 9.6 g/dL (12.0-16.0); Mean Corpuscular HGB CONC 29.1 g/dL (32.0-36.0); Mean Corpuscular Hemoglobin 26.4 pg (27.0-31.0); Mean Corpuscular Volume 90.9 fL (78.0-98.0); Platelet Count 539 thou/uL (130-400); RBC Distribution Width 17.5 % (11.5-14.5); Red Blood Cell (RBC) Count 3.62 mill/uL (4.20-5.40); White Blood Cell (WBC) Count 10.9 thou/uL (4.8-10.8)
[2020-01-13 07:17] LABS: Anisocytosis SLIGHT = 6-15 cells (100X) (0-5/hpf); Platelet Morphology Comment Appears Increased
[2020-01-13 07:36] LABS: Glucose 56 mg/dL (70-105)
== END 2020-01-12 23:03 | disposition home or self-care (01) ==
LOC: MADLAB 23:02
PROVIDERS: ATTEND Internal Medicine Infectious Disease
DX: A41.89 Other specified sepsis (principal)
CPT/HCPCS: 80053; 85025; 86140

== ENCOUNTER 2020-01-26 15:18 | Outpatient (CLI) | payer MEDICARE, OTHER ==
[2020-01-26 15:48] LABS: ALT (SGPT) 7 U/L (8-55); AST (SGOT) 11 U/L (5-34); Albumin 3.2 g/dL (3.5-5.0); Alkaline Phosphatase 98 U/L (40-110); Anion Gap 24 mmol/L (10-20); BUN (Urea Nitrogen) 52 mg/dL (9.8-20.1); Bilirubin, Total 0.2 mg/dL (0.2-1.2); CRP (Inflammatory) 15.28 mg/dL (= or < 0.5); Calc. Creatinine Clearance 0 mL/min (70-130); Calcium 8.9 mg/dL (7.8-10.44); Carbon Dioxide 14 mmol/L (22-29); Chloride 103 mmol/L (98-107); Glucose 74 mg/dL (70-105); Potassium 4.2 mmol/L (3.5-5.1); Protein, Total 8.2 g/dL (6.0-8.3); Sodium 137 mmol/L (136-145)
[2020-01-26 16:26] LABS: Hemoglobin 12.7 g/dL (12.0-16.0); Lymphocytes 2 % (21-51); MDiff Complete? YES; Mean Corpuscular HGB CONC 30.3 g/dL (32.0-36.0); Mean Corpuscular Hemoglobin 26.8 pg (27.0-31.0); Mean Corpuscular Volume 88.4 fL (78.0-98.0); Mean Platelet Volume 6.1 fL (7.4-10.4); Monocytes 3 % (0-10); Neutrophil 95 % (42-75); Platelet Count 641 thou/uL (130-400); Platelet Morphology Comment Appears Increased; RBC Morphology Normal; Red Blood Cell (RBC) Count 4.72 mill/uL (4.20-5.40); White Blood Cell (WBC) Count 23.6 thou/uL (4.8-10.8)
== END 2020-01-26 15:19 | disposition home or self-care (01) ==
LOC: MADLAB 15:18
PROVIDERS: ATTEND Internal Medicine Infectious Disease
DX: A41.89 Other specified sepsis (principal)
CPT/HCPCS: 80053; 85025; 86140